=== PATIENT | female | born 1960 | race Caucasian/White ===

== ENCOUNTER → 2018-11-02 | Outpatient (CLI) | payer OTHER ==
[~2018-11-02] MED LIST: ACETAMINOPHEN325 M1 PO; BONTRIL SLOW-R105 MG PO; CALCIUM 500 +1 EAC5 PO; CLARITIN10 MG; CLARITIN10 MG PO; ESTRACE1 MG PO; MOTION RELIEF25 MG PO; MUCINEX D TABL1 EAC1; NORCO 5-325 TA1 EACH PO; TOPIRAGEN50 MG PO
== END ==
LOC: ULTRA 14:25
DX: M79.622 Pain in left upper arm (principal); M79.621 Pain in right upper arm; R22.2 Localized swelling, mass and lump, trunk

== ENCOUNTER → 2018-11-04 | Outpatient (CLI) | payer OTHER | LOC: RAD 12:59 | DX: Z12.31 Encounter for screening mammogram for malignant neoplasm of breast (principal) ==

== ENCOUNTER 2018-11-30 20:59 | Emergency (ER) | payer OTHER ==
[~2018-11-30] VITALS: Ht 167.6 cm; Wt 86.2 kg
[2018-11-30 21:23] LABS: HEMATOCRIT 42.5 % (37.0-47.0); HEMOGLOBIN 14.7 gm/dL (12.0-15.0); MCHC 34.5 g/dL (28.0-37.0); MCV 83.9 fL (80.0-100.0); PLATELET COUNT 319 thou/uL (150-400); RBC 5.07 mil/uL (4.20-5.00); RDW 15.1 % (10.5-14.5); WBC 7.6 thou/uL (4.0-11.0)
[2018-11-30 21:38] LABS: CALCIUM 9.7 mg/dL (8.5-10.1); CREATININE 0.9 mg/dL (0.6-1.0); POTASSIUM 3.4 mmol/L (3.5-5.1)
[2018-11-30 21:42] LABS: ALBUMIN 3.8 g/dL (3.4-5.0); TOTAL BILIRUBIN 0.4 mg/dL (<0.1-1.0); TOTAL PROTEIN 7.9 g/dL (6.4-8.2)
[2018-11-30 22:00] LABS: ABSOLUTE NEUTROPHILS 3.6 thou/uL (1.4-8.2)
[2018-11-30 22:02] LABS: LARGE PLATELETS FEW; PLATELET ESTIMATE NORMAL; POLYCHROMASIA 1+
[2018-11-30 22:28] LABS: URINE BILIRUBIN NEGATIVE (Negative); URINE BLOOD NEGATIVE (Negative); URINE CLARITY CLEAR; URINE COLOR YELLOW; URINE GLUCOSE-RANDOM* NEGATIVE (Negative); URINE KETONES NEGATIVE (Negative); URINE LEUKOCYTES-REFLEX NEGATIVE (Negative); URINE NITRITE-REFLEX NEGATIVE (Negative); URINE PROTEIN (DIPSTICK) NEGATIVE (Negative); URINE UROBILINOGEN 0.2 E.U./dl (0.2-1.0)
[2018-11-30] MEDS ORDERED: LEVSIN0.125 MG PO (23:04)
[2018-11-30] MEDS ORDERED: PEPCID20 MG PO (23:04)
[2018-11-30 23:11] VITALS: BP 141/84
--- NOTE | 2018-12-01 08:41 | EKG ---
[place] [address] [email or web address] [place] [address] ELECTROCARDIOGRAM REPORT Name: FELICITA LENNON Room #: DEP [facility]#: [id number] ������������������ Admission: 11/30/18 ������������������ Attend Phys: Discharge: 11/30/18 ������������������ Date of : 58 Report #: [id number] ����������������������������������������������������������������� [id number] THIS REPORT FOR: //name// [facility] ED Test Date: 2018-11-30 Test Time: 21:18:07 Pat Name: FELICITA LENNON Department: Room: Gender: F Entry Processor: : 1960 Requested By: Cammy Ricci Order Number: [id number] MD: Kb Mcgregor Measurements Intervals [place] Rate: 72 P: 77 MT: 157 QRS: 17 QRSD: 105 T: 77 QT: 398 QTc: 436 Interpretive Statements Sinus rhythm RSR' in V1 or V2, right VCD Compared to ECG 09/18/2012 10:57:55 No significant change was found Electronically Signed On 12-01-2018 8:41:36 EARLY MORNING [employer]AB[employer] by Kb Mcgregor [email or web address] ��������������������������������������������� <ELECTRONICALLY SIGNED> ���������������������������������������� By: Kb Mcgregor MD, [facility] ��������������������������������������������� 12/01/18 0841 17 17 Kb Mcgregor MD, [facility] /EPI
== END 2018-11-30 23:11 | disposition home or self-care (01) ==
LOC: ER 20:59
PROVIDERS: Nurse Practitioner Family
DX: K58.9 Irritable bowel syndrome, unspecified (principal); Z90.710 Acquired absence of both cervix and uterus

== ENCOUNTER → 2019-03-03 | Outpatient (CLI) | payer OTHER ==
[~2019-03-03] MED LIST changes: +LEVSIN0.125 MG PO; +PEPCID20 MG PO
== END ==
LOC: ULTRA 12:55
DX: K80.20 Calculus of gallbladder without cholecystitis without obstruction (principal)

== ENCOUNTER 2019-05-02 05:16 | Day surgery (SDC) | payer OTHER ==
[~2019-05-02] VITALS: Ht 167.6 cm; Wt 83.9 kg
[2019-05-02 07:31] LABS: HEMATOCRIT 38.8 % (37.0-47.0); HEMOGLOBIN 12.9 gm/dL (12.0-15.0)
[2019-05-02 07:44] VITALS: BP 142/79
[2019-05-02] MEDS ORDERED: ULTRACET TABLET1 TAB PO (09:00)
[2019-05-02] MEDS ORDERED: SENNA-S TABLET1 EACH PO (09:00)
[2019-05-02 09:30] VITALS: BP 142/79
--- NOTE | 2019-05-03 16:06 | PATH ---
[facility] [address] [place] [address] PATHOLOGY RPT PROCEDURE Name: EMILIA KING Room #: DEP [facility] M.R.#: [id number] ������������������ Admission: 05/02/19 ������������������ Date of : 58 Discharge: 05/02/19 Report #: [id number] Path Case #: [id number] [facility] Accession Number: [id number] . 01 Material submitted: . gallbladder - GALLBLADDER . 01 Clinical history: . cholecystitis . 02 Diagnosis: Gallbladder, cholecystectomy: - Moderate chronic cholecystitis with focal intestinal metaplasia. - Negative for dysplasia. - Cholelithiasis. (IUV:circuit walker; 05/03/2019) MBR/05/03/2019 . 02 Electronically signed: . Silvia Bermeo MD, Pathologist NPI- [id number] . 01 Gross description: . The specimen is received in formalin, labeled "Emilia King, gallbladder", is a previously opened gallbladder measuring 8.6 cm in length and 2.5 cm in maximum diameter with a wrinkled, nunes-yellow serosa. The cystic duct is patent. The mucosa is nunes-yellow and with no cholesterolosis. The wall is 0.1 cm in average thickness. Within the container there are multiple multifaceted dark green-brown calculi and its fragments measuring 4.7 x 3.4 x 1.0 cm in aggregate. Representatively submitted in A1. ([facility]; 05/02/2019) SHS/SHS . 02 Pathologist provided ICD-10: K80.10 . 02 CPT . 758407 Specimen Comment: A courtesy copy of this report has been sent to Specimen Comment: [phone], . Specimen Comment: Report sent to / DR SALAZAR Performed at: [address] [id number] MD Frandy Garcia MD Phone: [phone] Performed at: [address] [id number] PATHOLOGY RPT PROCEDURE Name: EMILIA KING Room #: DEP [facility] M.Elda.#: [id number] ������������������ Admission: 05/02/19 ������������������ Date of : 58 Discharge: 05/02/19 Report #: [id number] Path Case #: [id number] [address] [place] [address], [place] [id number] MD Silvia Bermeo MD Phone: [phone]
== END 2019-05-02 10:55 | disposition home or self-care (01) ==
LOC: TBA 05:16 → OR 05:16
PROVIDERS: Surgery
DX: K80.10 Calculus of gallbladder with chronic cholecystitis without obstruction (principal); Z98.890 Other specified postprocedural states; Z90.710 Acquired absence of both cervix and uterus; Z79.899 Other long term (current) drug therapy
CPT/HCPCS: 50010; 50101; 50249; 50411; 50555; 50558; 50962; 51489; 51975; 52265; 53307; 54022; 54118; 55245; 55317; 56462; 56525; 56526; 62110; 62900; 70005